=== PATIENT | male | born 1940 | race Caucasian/White ===

== ENCOUNTER → 2023-07-16 04:00 | Outpatient (REF) | payer MEDICARE, SELFPAY | LOC: DHSLP 04:00 | PROVIDERS: ATTENDING PHYSICIAN Internal Medicine Cardiovascular Disease; FAMILY PHYSICIAN Internal Medicine | DX: G47.33 Obstructive sleep apnea (adult) (pediatric) (principal) | CPT/HCPCS: 95800 ==

== ENCOUNTER → 2023-07-22 11:26 | Outpatient (REF) | payer MEDICARE, SELFPAY | LOC: DHCBC/DCA 11:26 | PROVIDERS: ATTENDING PHYSICIAN Internal Medicine Cardiovascular Disease; FAMILY PHYSICIAN Internal Medicine | DX: I48.0 Paroxysmal atrial fibrillation (principal) | CPT/HCPCS: 78452; 93017; A9500; J2785 ==

== ENCOUNTER → 2023-07-26 12:39 | Outpatient (REF) | payer MEDICARE, SELFPAY ==
[2023-07-26 15:58] LABS: % Basophils 0.6 % (0-2); % Eosinophils 2.7 % (0-6); % Lymphocytes 18.8 % (20.5-51.1); % Monocytes 9.6 % (1.7-9.3); % Neutrophils 67.3 % (42.2-75.2); Absolute Basophils 0.1 10^3/uL (0-0.2); Absolute Eosinophils 0.2 10^3/uL (0-0.7); Absolute Immature Granulocytes 0.1 10^3/uL (0-0.05); Absolute Lymphocytes 1.5 10^3/uL (1.2-3.4); Absolute Monocytes 0.7 10^3/uL (0.1-0.6); Absolute Neutrophils 5.2 10^3/uL (1.4-6.5); Hematocrit 47.3 % (39.0-52.0); Hemoglobin 15.7 g/dL (13.0-18.0); Mean Corp Hgb Conc. 33.2 g/dL (33.0-37.0); Mean Corpuscular Hgb 29.3 pg (27.0-31.0); Mean Corpuscular Volume 88.4 fL (80.0-94.0); Mean Platelet Volume 9.5 fL (7.4-10.4); Nucleated Red Blood Cells % 0 % (-); Platelet Count 223 10^3/uL (130-400); Red Blood Cell Count 5.35 10^6/uL (4.70-6.10); Red Cell Dist. Width 13.2 % (11.5-14.5); White Blood Cell Count 7.7 10^3/uL (4.8-10.8)
[2023-07-26 16:32] LABS: ALT (SGPT) 24 U/L (0-50); AST (SGOT) 27 U/L (17-59); Albumin 4.5 g/dl (3.5-5.0); Alkaline Phosphatase 78 U/L (38-126); Blood Urea Nitrogen 34 mg/dl (9-20); Calcium 9.8 mg/dl (8.4-10.2); Carbon Dioxide 27 mmol/L (22-30); Chloride 101 mmol/L (98-107); Glucose 152 mg/dl (70-99); HDL Cholesterol 54 mg/dl; LDL Cholesterol, Calculated 78 mg/dl; Potassium 4.4 mmol/L (3.5-5.1); Sodium 138 mmol/L (135-145); Total Bilirubin 0.7 mg/dl (0.2-1.3); Total Cholesterol 152 mg/dl (50-199); Total Protein 7.3 g/dl (6.3-8.2); Triglyceride 103 mg/dl (10-149); Very Low Density Lipoprotein 20 mg/dl (0-30); eGFR 46.48
[2023-07-26 16:49] LABS: TSH Reflex To Free T4 2.57 uIU/ml (0.47-4.68)
[2023-07-26 16:59] LABS: Microalbumin, Random Urine 31.9 mg/dl (0.6-1.7); Microalbumin/creatinine Ratio 553.8 mg/g
[2023-07-27 08:56] LABS: Glycohemoglobin (HgbA1c) 8.2 % (4.0-5.6)
== END ==
LOC: HWLAB 12:39
PROVIDERS: ATTENDING PHYSICIAN Internal Medicine
DX: E11.9 Type 2 diabetes mellitus without complications (principal); E78.1 Pure hyperglyceridemia; I48.92 Unspecified atrial flutter; E78.5 Hyperlipidemia, unspecified
CPT/HCPCS: 36415; 80053; 80061; 82043; 82570; 83036; 84443; 85025

== ENCOUNTER → 2023-09-16 06:43 | Day surgery (SDC) | payer MEDICARE, SELFPAY ==
--- NOTE | 2023-09-06 09:01 | HPS.HSE ---
Family Physician
-
Family Physician: NO INTERVIEW UNKNOWN
Chief Complaint
-
Paroxysmal atrial fibrillation and atrial flutter.
History of Present Illness
The patient is an 83-year-old male presenting today for paroxysmal atrial fibrillation and atrial flutter. He was first diagnosed with these atrial arrhythmias in 2019. He does report a wide variety of symptoms associated with these
diagnoses, which include fullness in his neck, rare palpitations, fatigue, and shortness of breath. He is on current pharmacological therapy with Diltiazem and newly added Metoprolol Succinate. He is compliant with Eliquis for oral anticoagulation
due to a [id number] of 6. He notes that his current symptoms are greatly interfering with his activities of daily living and are overall impacting his quality of life. He is interested in pursuing pulmonary vein isolation and a possible atrial
flutter ablation for further arrhythmia management. Prior to undergoing these procedures, he will first undergo a transesophageal echocardiogram to officially rule out a left atrial appendage thrombus. He denies any current complaints today such as
chest pain or shortness of breath at rest, nausea, vomiting, diarrhea, lightheadedness, dizziness, cough, sore throat, or fever.
Medical History
Past Medical History
Past Medical History: Reports Other
Additional Past Medical History:
1. Paroxysmal atrial fibrillation and atrial flutter, pharmacological therapy with Diltiazem and Metoprolol Succinate, oral anticoagulation with Eliquis.
2. Hypertension.
3. Dyslipidemia, statin intolerant.
4. Right bundle branch block.
5. Newly diagnosed obstructive sleep apnea, no current device.
6. Right lower extremity DVT and pulmonary embolism, 05/2018, likely provoked by trauma; on Eliquis.
7. Solitary kidney with chronic kidney disease stage 3.
8. Insulin-dependent diabetes.
9. GERD.
10. Colon polyps.
11. Diverticulosis.
12. Remote GI ulcers without bleed.
13. Jaundice of unknown cause 1984.
14. Chronic low back pain.
15. BPH with urinary frequency.
Past Surgical History: Reports Other
Additional Past Surgical History:
1. Right knee meniscus repair.
2. Bilateral inguinal hernia repair in childhood.
3. Radiofrequency ablation.
4. Bilateral eyelid surgery.
5. Bilateral cataract extraction.
6. Tonsillectomy.
7. Colonoscopy x6.
Social History
Tobacco: Non-smoker
Alcohol: Other (He reports, on average, having one alcoholic beverage every Wednesday night. )
Personal:
Living: Other (The patient lives in a two-story townhouse with his .)
Family History
Family History: Not pertinent
Allergies / Home Medications
Allergy/Medication List:
HOME MEDICATIONS:
1. Apixaban 2.5 mg p.o. twice a day.
2. Diltiazem 120 mg p.o. twice a day.
3. Jardiance 25 mg p.o. daily.
4. Zetia 10 mg p.o. at bedtime.
5. Famotidine 20 mg p.o. daily.
6. Fenofibrate 145 mg p.o. daily.
7. Glimepiride 2 mg p.o. twice a day.
8. Lantus 14 units subcutaneous daily.
9. Lisinopril 10 mg p.o. at bedtime.
10. Metformin 500 mg p.o. at bedtime.
11. Metoprolol succinate 25 mg p.o. daily.
12. Centrum Silver multivitamin one tablet p.o. daily.
13. PreserVision one tablet p.o. twice a day.
ALLERGIES: No known allergies.
ADVERSE DRUG REACTIONS: Statins (myalgias).
Review of Systems
-
A 12 point ROS was completed and negative except as noted: Yes
Physical Exam
Vital Signs
VITAL SIGNS: Blood pressure 133/92, heart rate 123, respirations 18, pulse ox 97%.
Height 5 feet 7.5 inches, weight 85.4 kg, BMI 29.1.
Physical Exam
General: Well Developed, Well Nourished and No Apparent Distress
HEENT: NormoCephalic, Moist mucous membranes, Atraumatic and PERRLA
Respiratory: Clear
Cardiac: Irregular Rhythm
GI: Soft, Non Tender and Non Distended
Musculoskeletal: Normal Gait & Station
Skin: Warm and Dry
Neuro: AO x 3 and Nonfocal/grossly intact
Laboratory Results
-
DIAGNOSTIC STUDIES as of 09/03/2023: White blood cell count 7.7, hemoglobin 16.0, platelet count 229, PT 15.3, INR 1.22. Sodium 138, potassium 4.1, BUN 25, creatinine 1.6, glucose 85, calcium 9.6, magnesium 2.0, AST 29, ALT 26, albumin 4.5. Blood
type O-positive.
Electrocardiogram 09/17/2023: Atrial flutter with variable AV block. Left axis deviation. Right bundle branch block. Septal MO. When compared to the EKG of March 22, 2019, atrial flutter has replaced sinus rhythm. Right bundle branch block is now
present.
Echocardiogram 06/16/2023: Ejection fraction is 55-60%. Mild mitral annular calcification with trace mitral regurgitation. Trace tricuspid regurgitation. Estimated pulmonary artery pressure of 20-25 mmHg. The patient was in atrial fibrillation with
heart rates ranging from 72-120 beats per minute.
Exercise stress test 02/09/2019: Left ventricular ejection fraction by SPECT imaging 58%. Patient exercised on a Maximiliano protocol for 7 minutes and 1 second achieving 8 METS and 98% MPHR. Stress EKG negative for ischemia. No arrhythmias noted during
exercise.
Impression/Plan
-
IMPRESSION/PLAN:
1. Paroxysmal atrial fibrillation and atrial flutter: The patient is in need of pulmonary vein isolation and possible atrial flutter ablation. Prior to undergoing these procedures, he will undergo a transesophageal echocardiogram with Dr. Mendoza
Kaylin on 09/16/2023 to officially rule out a left atrial appendage thrombus. The benefits and risks of the procedure have been explained to the patient. The patient understands these risks and wishes to proceed.
[2023-09-16 07:10] VITALS: BMI 28.7
[2023-09-16 07:40] LABS: Glucose - Point of Care 112 mg/dl (70-99)
== END ==
LOC: CATH 06:43
PROVIDERS: ATTENDING PHYSICIAN Internal Medicine Cardiovascular Disease; FAMILY PHYSICIAN Internal Medicine
DX: I08.1 Rheumatic disorders of both mitral and tricuspid valves (principal); I48.0 Paroxysmal atrial fibrillation; I48.92 Unspecified atrial flutter; I45.10 Unspecified right bundle-branch block; I12.9 Hypertensive chronic kidney disease with stage 1 through stage 4 chronic kidney disease, or unspecified chronic kidney disease; E11.22 Type 2 diabetes mellitus with diabetic chronic kidney disease; N18.30 Chronic kidney disease, stage 3 unspecified; E78.5 Hyperlipidemia, unspecified; G47.33 Obstructive sleep apnea (adult) (pediatric); K21.9 Gastro-esophageal reflux disease without esophagitis; Z86.711 Personal history of pulmonary embolism; Z79.01 Long term (current) use of anticoagulants; Z79.4 Long term (current) use of insulin; Z79.84 Long term (current) use of oral hypoglycemic drugs
CPT/HCPCS: 93312; 93320; 93325; 82962

== ENCOUNTER 2023-09-17 08:55 | Day surgery (SDC) | payer MEDICARE, SELFPAY ==
[2023-09-03 08:20] VITALS: BMI 29.1
[2023-09-17] VITALS (14 sets, daily range): BP systolic 90–133; BP diastolic 67–97
[2023-09-17 10:07] LABS: Glucose - Point of Care 83 mg/dl (70-99)
[2023-09-17] MEDS: NSS 500 IV (10:07)
[2023-09-17 13:19] LABS: ACT-LR - POC 281 Seconds (116-155)
[2023-09-17 13:36] LABS: ACT-LR - POC 380 Seconds (116-155)
[2023-09-17 13:59] LABS: ACT-LR - POC 327 Seconds (116-155)
[2023-09-17 14:14] LABS: Glucose 67 mg/dl (70-99)
[2023-09-17 14:27] LABS: ACT-LR - POC 358 Seconds (116-155)
[2023-09-17 14:54] LABS: ACT-LR - POC 395 Seconds (116-155)
[2023-09-17 15:03] LABS: ACT-LR - POC 173 Seconds (116-155)
--- NOTE | 2023-09-17 15:41 | ITS.CL.ABL ---
[facility] - Ablation
Ablation
Procedure Report:
Primary [employer]st[employer] Crew: Kelly Ewing DO
Procedure Date: 09/17/2023
Patient History:
Patient is an 83-year-old male with a past medical history significant for hypertension, DVT/PE, diabetes mellitus type 2, mixed dyslipidemia, chronic renal insufficiency stage III with solitary kidney, persistent atrial fibrillation (and atrial
arrhythmias) who presents for electrophysiology study and ablation of atrial arrhythmia.
See H&P for complete details.
Indication:
Symptomatic persistent atrial fibrillation
Arrhythmia Specific History:
Prior Medical Therapies for Rate and Rhythm Control:
X Beta-cruz
X Calcium channel-cruz
[ ] Amiodarone
[ ] Dronederone
[ ] Sotalol
[ ] Flecainide
[ ] Dofetilide
[ ] Options limited by bradycardia
[ ] Options limited by comorbid renal disease
Prior Procedural Therapies for AF/AFL:
[ ] Cardioversion
[ ] Pulmonary Vein Isolation
[ ] Posterior Wall Isolation
[ ] Additional lines (Specify)
[ ] Surgical Aragon-MAZE or PVI (Specify)
Procedure Performed:
X AF ablation procedure (50746) -- includes LA/CS pacing, trans-septal, 3D mapping, + ICE
[ ] +IV drug (53591)
[ ] +Other Arrhythmia (59468)
[ ] +Other AF Line/ablation (11028)
Risks and expected recovery has been explained in detail. Alternative options have been explored, and in a shared-decision making fashion we have decided that this was the most appropriate procedure.
Method
NPO status confirmed. Grounding pad applied. Defibrillator pads applied. Continuous surface ECG, pulse oximetry, and blood pressure were monitored. Procedure was performed under general anesthesia, with anesthesia services.
Both groins were clipped, prepped with Chloraprep, and draped in sterile fashion. Time out was called. Local anesthesia administered with bupivacaine. The right and left femoral veins were accessed for catheter placement, using ultrasound guidance,
micro-puncture needle/wire, and modified seldinger technique. 3 sheaths were placed. The following catheters were used:
[ ] Tacticath SE (D/F Curve) ablation catheter
X Viewflex 9Fr ICE catheter
X Inquiry decapolar 6Fr diagnostic catheter
[ ] CRD Hex 6Fr
[ ] Arctic Front Advance Cryoballoon ([ ]28mm[ ]23mm)
[ ] Achieve Advance mapping catheter ([ ]15mm[ ]20mm)
X FlexCath Contour 10 Fr with PulseSelect PFA Catheter
X Advisor HD Grid Mapping Catheter, SE
[ ] Acuson AcuNav 8 Fr ICE catheter
[ ]Other: [ ]
Intracardiac ultrasound (ICE) was carefully advanced into the right atrium to guide sheath placement over a J-wire, catheter placement, guide trans-septal puncture, identify potential complications, identify anatomic structures and ensure proper
contact between ablation catheter and tissue. Following placement of the decapolar catheter to coronary sinus, patient was in a regular supraventricular tachycardia (flutter) at 240 ms with activation was noted to be concentric proximal to distal
CS. Entrainment from proximal CS demonstrated a post pacing or minus tachycardia cycle length greater than 50 ms. Heparin was provided and bolus to maintain ACT between 300-400 ms. HD grid was advanced in the right atrium and activation mapping
demonstrated breakthrough via intra-atrial septum (right atrium was passive in the tachycardia).
Heparin was given prior to trans-septal puncture. Heparin was given to achieve and maintain a target ACT of 300-400 seconds throughout the procedure.
Trans-septal access was performed under ICE guidance. The trans-septal puncture was performed with a SafeSept wire through a Brockenbrough needle assembly through the steerable sheath. The wire was visualized as it entered the LSPV and system
advanced under ICE guidance and fluoroscopy into the LA. The Brockenbrough needle assembly, SafeSept wire and sheath dilator were removed under negative pressure. LA pressure was measured and recorded.
ICE and 3D mapping was performed to identify relevant cardiac structures. A careful 3D map was created to assess for regions of low-voltage and abnormal electrogram signals using HD grid mapping catheter and PulseSelect catheter. Once in the left
atrium, HD grid was advanced and tachycardia was mapped demonstrating possible circumflex around the mitral annulus and left-sided pulmonary veins. Initial step was to perform pulmonary vein isolation and reassess.
Prior to ablation, glycopyrrolate was provided. PulseSelect catheter was advanced over J-wire to the ostium of each vein. Pulmonary vein isolation was performed with ostial and antral lesions in a circumferential manner. Contact was visualized via
EAM, ICE, fluoroscopy, and EGM signals. Following completion of ablation lesions, sinus rhythm was restored with a 200J synchronized DCCV and a post-ablation voltage/activation map was performed in sinus rhythm. Entrance and exit block were
confirmed for each vein.
Catheter and sheath were removed from the left atrium and post-ablation intracardiac echo evaluation was consistent with pre-ablation with no changes and no pericardial effusion and there is no left atrial thrombus or left ventricle thrombus seen.
Electrophysiology study was performed and no inducible tachycardia was noted. Hemostasis was obtained with Vascade for each sheath and with manual pressure. Protamine was used for reversal.
Estimated Blood Loss
5-10 mL
Complications
None
Fluoroscopy: 8.8 minutes; 33.04 mGy
Baseline Intervals:
Rhythm: Atrial Flutter
QRS: 133 ms
QT: 335 ms
Post-Procedure Intervals:
MT: 239 ms
QRS: 127 ms
QT: 414 ms
QTc: 447 ms
A-A: 856 ms
R-R: 856 ms
AVWB: 420 ms
AVNERP: 600/290 ms
Recommendations
- Bedrest with straight-leg precautions as ordered
- Anticipate same day discharge if patient meeting clinical metrics
- Resume home medications as indicated
- Ok to resume anticoagulation tonight if patient and groin sites stable
- PPI daily for 30 days
- Plan for follow-up in office as scheduled
Garo Juan DO
Clinical [facility]
cc: Kelly Ewing DO; Bre Godinez MD
--- NOTE | 2023-09-17 17:07 | W.PN.UPDATE ---
Update Note
Progress Note Update
83 yo WM s/p PVI (same day). He feels good, still groggy, no cp, sob, mark clears, groins c/d/i no HT< soft, EKG SR no ectopy. He will take Eliquis at 9pm at home. He will continue diltiazem and will add PPI. Activity restrictions reviewed. He will
f/u Dr. Suresh in 1 mo. He is for d/c home after 6pm if groins stable and voiding.
[2023-09-17 17:15] LABS: Glucose - Point of Care 88 mg/dl (70-99)
== END 2023-09-17 18:04 | disposition home or self-care (01) ==
LOC: CATH 08:55
PROVIDERS: ATTENDING PHYSICIAN Internal Medicine Cardiovascular Disease; FAMILY PHYSICIAN Internal Medicine; OTHER PHYSICIAN Internal Medicine Cardiovascular Disease
DX: I48.0 Paroxysmal atrial fibrillation (principal); I48.92 Unspecified atrial flutter; I12.9 Hypertensive chronic kidney disease with stage 1 through stage 4 chronic kidney disease, or unspecified chronic kidney disease; N18.30 Chronic kidney disease, stage 3 unspecified; E11.22 Type 2 diabetes mellitus with diabetic chronic kidney disease; E78.2 Mixed hyperlipidemia; I45.10 Unspecified right bundle-branch block; G47.33 Obstructive sleep apnea (adult) (pediatric); K21.9 Gastro-esophageal reflux disease without esophagitis; Z79.01 Long term (current) use of anticoagulants; Z79.84 Long term (current) use of oral hypoglycemic drugs; Z79.4 Long term (current) use of insulin
CPT/HCPCS: C1732; C1894; C1769; C1759; 76937; 82947; 82962; 85347; 86900; 86901; 93005; 93656; C1760

== ENCOUNTER → 2023-11-29 07:34 | Outpatient (REF) | payer MEDICARE, SELFPAY ==
[2023-11-29 09:59] LABS: ALT (SGPT) 24 U/L (0-50); AST (SGOT) 34 U/L (17-59); Albumin 4.2 g/dl (3.5-5.0); Alkaline Phosphatase 72 U/L (38-126); Blood Urea Nitrogen 27 mg/dl (9-20); Calcium 9.7 mg/dl (8.4-10.2); Carbon Dioxide 27 mmol/L (22-30); Chloride 104 mmol/L (98-107); Glucose 73 mg/dl (70-99); HDL Cholesterol 56 mg/dl; LDL Cholesterol, Calculated 85 mg/dl; Phosphorus 3.9 mg/dl (2.5-4.5); Potassium 4.1 mmol/L (3.5-5.1); Sodium 140 mmol/L (135-145); Total Bilirubin 0.5 mg/dl (0.2-1.3); Total Cholesterol 158 mg/dl (50-199); Total Protein 6.9 g/dl (6.3-8.2); Triglyceride 89 mg/dl (10-149); Very Low Density Lipoprotein 17 mg/dl (0-30); eGFR 42.75
[2023-11-29 10:36] LABS: Protein/creatinine Ratio 1.4; Urine Protein 108 mg/dl
[2023-11-30 09:02] LABS: Intact PTH 52.3 pg/ml (13.6-85.8)
== END ==
LOC: HWLAB 07:34
PROVIDERS: ATTENDING PHYSICIAN Specialist; FAMILY PHYSICIAN Internal Medicine
DX: E11.21 Type 2 diabetes mellitus with diabetic nephropathy (principal); E78.5 Hyperlipidemia, unspecified; I10 Essential (primary) hypertension; N17.9 Acute kidney failure, unspecified
CPT/HCPCS: 36415; 80053; 80061; 82570; 83036; 83970; 84100; 84156

== ENCOUNTER → 2024-06-26 08:34 | Outpatient (REF) | payer MEDICARE, SELFPAY ==
[2024-06-26 11:44] LABS: Glycohemoglobin (HgbA1c) 7.8 % (4.0-5.6)
[2024-06-26 12:11] LABS: Intact PTH 70.2 pg/ml (13.6-85.8)
[2024-06-26 12:27] LABS: ALT (SGPT) 16 U/L (0-50); AST (SGOT) 22 U/L (17-59); Albumin 4.3 g/dl (3.5-5.0); Alkaline Phosphatase 61 U/L (38-126); Blood Urea Nitrogen 26 mg/dl (9-20); Calcium 9.2 mg/dl (8.4-10.2); Carbon Dioxide 28 mmol/L (22-30); Chloride 102 mmol/L (98-107); Glucose 88 mg/dl (70-99); HDL Cholesterol 50 mg/dl; LDL Cholesterol, Calculated 105 mg/dl; Phosphorus 3.2 mg/dl (2.5-4.5); Potassium 4.3 mmol/L (3.5-5.1); Sodium 138 mmol/L (135-145); Total Bilirubin 0.9 mg/dl (0.2-1.3); Total Cholesterol 180 mg/dl (50-199); Total Protein 6.7 g/dl (6.3-8.2); Triglyceride 126 mg/dl (10-149); Very Low Density Lipoprotein 25 mg/dl (0-30); eGFR 42.75
[2024-06-26 12:32] LABS: Urine Protein 98 mg/dl (0-12)
== END ==
LOC: HWLAB 08:34
PROVIDERS: ATTENDING PHYSICIAN Specialist; FAMILY PHYSICIAN Internal Medicine
DX: I10 Essential (primary) hypertension (principal); N18.32 Chronic kidney disease, stage 3b; E11.21 Type 2 diabetes mellitus with diabetic nephropathy; E11.9 Type 2 diabetes mellitus without complications; E78.1 Pure hyperglyceridemia
CPT/HCPCS: 36415; 80053; 80061; 82570; 83036; 83970; 84100; 84156

== ENCOUNTER 2024-08-31 13:04 | Emergency (ER) | payer MEDICARE, SELFPAY ==
[2024-08-31 13:08] VITALS: BP 150/109
[2024-08-31 13:47] VITALS: BMI 28.2
[2024-08-31 14:00] VITALS: BP 140/107
[2024-08-31 14:01] LABS: % Basophils 0.7 % (0-2); % Eosinophils 3.3 % (0-6); % Immature Granulocytes 0.9 % (0-0.5); % Lymphocytes 20.8 % (20.5-51.1); % Monocytes 9.2 % (1.7-9.3); % Neutrophils 65.1 % (42.2-75.2); Absolute Basophils 0.1 10^3/uL (0-0.2); Absolute Eosinophils 0.3 10^3/uL (0-0.7); Absolute Immature Granulocytes 0.1 10^3/uL (0-0.05); Absolute Lymphocytes 1.6 10^3/uL (1.2-3.4); Absolute Monocytes 0.7 10^3/uL (0.1-0.6); Absolute Neutrophils 4.9 10^3/uL (1.4-6.5); Hematocrit 48.3 % (39.0-52.0); Hemoglobin 16.1 g/dL (13.0-18.0); Mean Corp Hgb Conc. 33.3 g/dL (33.0-37.0); Mean Corpuscular Hgb 29.4 pg (27.0-31.0); Mean Corpuscular Volume 88.3 fL (80.0-94.0); Mean Platelet Volume 9.5 fL (7.4-10.4); Nucleated Red Blood Cells % 0 % (-); Platelet Count 203 10^3/uL (130-400); Red Blood Cell Count 5.47 10^6/uL (4.70-6.10); Red Cell Dist. Width 13.5 % (11.5-14.5); White Blood Cell Count 7.6 10^3/uL (4.8-10.8)
[2024-08-31 14:18] LABS: ALT (SGPT) 21 U/L (0-50); AST (SGOT) 28 U/L (17-59); Albumin 4.7 g/dl (3.5-5.0); Alkaline Phosphatase 65 U/L (38-126); Blood Urea Nitrogen 27 mg/dl (9-20); Calcium 9.8 mg/dl (8.4-10.2); Carbon Dioxide 28 mmol/L (22-30); Chloride 104 mmol/L (98-107); Estimated Creatinine Clearance 36 ml/min; Glucose 134 mg/dl (70-99); Potassium 4.4 mmol/L (3.5-5.1); Sodium 142 mmol/L (135-145); Total Bilirubin 0.8 mg/dl (0.2-1.3); Total Protein 7.4 g/dl (6.3-8.2); eGFR 42.49
[2024-08-31] MEDS: LOPRESSOR 5 MG IV (14:44)
[2024-08-31 14:48] LABS: TSH Reflex To Free T4 3.61 uIU/ml (0.47-4.68)
[2024-08-31 15:44] VITALS: BP 140/106
[2024-08-31] MEDS: CARDIZEM 20 MG IV (15:44)
--- NOTE | 2024-08-31 15:50 | ED.GENMED ---
History of Present Illness
General
Chief Complaint: Cardiac Symptoms
Time Seen by Provider: 08/31/24 14:09
History of Present Illness
History of Present Illness:
84-year-old male with history of atrial fibrillation on Eliquis/metoprolol/diltiazem presenting to the emergency department for elevated heart rate. Patient presents from his primary care doctor, where he was noted to have elevated heart rate.
Patient is asymptomatic, denies any chest pain, difficulty breathing, lightheadedness. Heart rate in the 130s. Notes that he has not had any episodes of atrial fibrillation for the past year after an ablation. Reports compliance with his
medications. He took an extra dose of metoprolol prior to arrival. No apparent change. Denies additional acute medical complaints
Past History
Past History
ED Past Medical History: Hypercholesterolemia, NIDDM and Other (Peptic ulcer disease, congenital one kidney-left, followed by Dr Chen, on low dose Lisinopril)
ED Past Surgical History: Other (Bilateral inguinal herniorrhaphy during childhood)
Social History
Tobacco: Non-smoker
Alcohol: Occasional
Personal:
Phy Exam
Physical Exam
Physical Exam:
General: Well-appearing, no clinical signs of dehydration, nontoxic and in no acute distress
HEENT: protecting airway
Neck: appears supple
CV: Tachycardic, regular rhythm, no evidence of cyanosis
Resp: No accessory muscle use, no increased work of breathing, lungs clear to auscultation bilaterally
Abd: No distention
Extremities: No deformities, no swelling, no erythema, pulses and sensation intact
Neuro: alert, no focal neurologic deficit
: deferred
Rectal: deferred
Psych: Normal affect
Skin: Intact
Course
Orders/Labs/Results
Orders:
Orders
08/31/24 13:04
Electrocardiogram (*1) Urgent
Reason for Study: Palpitations
EKG- Treatment ONCE
08/31/24 13:51
Complete Blood Count/With Diff Urgent
Comprehensive Metabolic Panel Urgent
TSH Reflex To Free T4 Urgent
08/31/24 14:39
Metoprolol [Lopressor] 5 mg IV NOW STA
08/31/24 14:59
EKG [Electrocardiogram (*1)] Urgent
Reason for Study: Tachycardia
EKG- Treatment ONCE
08/31/24 15:39
Diltiazem HCl [Cardizem] 20 mg IV NOW STA
Abnormal Lab Results
08/31/24
13:51
Abs Immat Gran (auto) 0.1 H 10^3/uL
(0-0.05)
Absolute Monos (auto) 0.7 H 10^3/uL
(0.1-0.6)
Immature Gran % 0.9 H %
(0-0.5)
BUN 27 H mg/dl
(9-20)
Creatinine 1.6 H mg/dL
(0.7-1.3)
Glucose 134 H mg/dl
(70-99)
08/31/24 13:51
08/31/24 13:51
Vital Signs
Initial and Last Documented VS:
Initial Vital Signs
Temp Pulse Resp BP Pulse Ox
98.0 F 130 16 150/109 98
08/31/24 13:08 08/31/24 13:08 08/31/24 13:08 08/31/24 13:08 08/31/24 13:08
Last Documented Vital Signs
Temp Pulse Resp BP Pulse Ox
98.0 F 132 13 140/106 97
08/31/24 13:08 08/31/24 15:44 08/31/24 14:45 08/31/24 15:44 08/31/24 14:45
MDM/Problems Addressed
MDM/Problems Addressed:
84-year-old male with history of atrial fibrillation status post ablation presenting for elevated heart rate. Vital signs on arrival are significant for tachycardia.
On exam patient is resting comfortably, no acute distress. Patient is currently asymptomatic. EKG is reading sinus rhythm at a rate of 133. However given patient's history, concern for a flutter. Will screen with laboratory analysis and trial
dose of IV metoprolol.
15:00 -heart rate improved to 90s to 120s, remains asymptomatic. In discussion with cardiology, recommending increasing metoprolol to 50 mg twice daily. Heart rate however has gone back up. Patient is also on diltiazem. Will try dose of IV
diltiazem.
16:00 - Labs unremarkable and patient's heart rate has normalized. On reassessment remains asymptomatic. At this time feel stable for discharge with outpatient cardiology follow-up, has an appointment on the . Will start on metoprolol twice
daily. Return precautions discussed and patient verbalized understanding
*EKG
Interpreted by ED Provider?: Yes
EKG Intrepretation Date: 08/31/24
EKG Intrepretation Time: 15:53
Interpretation: abnormal
Comparison EKG: changes noted (elevated HR)
Heart Rate: 133
Rate: tachycardiac
Rhythm: sinus
[place]: left axis deviation
QRS Pattern: normal QRS
Ischemia: non-specific ST changes
*Critical Care Note
Total Time (30-74mins, 75-104mins- exclusive of procedures): Not Applicable
ED Attending Note
-
Portions of this chart may have been created with voice recognition software.� Occasional wrong word or��sound alike� substitutions may have occurred due to the inherent limitations of voice recognition software.
Discharge Plan
Departure
Prescriptions:
No Action
fenofibrate nanocrystallized [Tricor] 145 MG tablet
145 mg PO DAILY
glimepiride 2 MG tablet
2 mg PO BID
Eliquis 2.5 mg Tablet
2.5 mg PO BID
PreserVision AREDS-2 250-90-40-1 mg Capsule
1 tab PO BID
insulin glargine [Lantus Solostar U-100 Insulin] 100 unit/mL (3 mL) Insulin Pen
14 unit SC DAILY
famotidine [Pepcid] 20 mg Tablet
20 mg PO DAILY
vcncuvbclyot-cbjbmczj-dcjduj Tablet
1 tab PO DAILY
ezetimibe [Zetia] 10 mg Tablet
10 mg PO QPM
Jardiance 25 mg Tablet
25 mg PO DAILY
diltiazem HCl 120 MG capsule,extended release 24hr
120 mg PO BID
metformin 500 mg Tablet
500 mg PO DAILY
lisinopril 10 mg Tablet
10 mg PO QPM
metoprolol succinate 25 mg Tablet Extended Release 24 Hr
25 mg PO DAILY
pantoprazole [Protonix] 40 mg tablet,delayed release (DR/EC)
40 mg PO DAILY Qty: 30 0RF
Referrals:
Bre Godinez MD [Family Provider] -
Interventions
Interventions:
*Risk Screen - Suicide Last Done: 08/31/24 13:08
*General Assessment Last Done: 08/31/24 13:47
*Neglect/Abuse Screening Last Done: 08/31/24 13:08
*ED- Fall Risk Assessment Last Done: 08/31/24 13:47
*ED COVID-19 Vaccine History Last Done: 08/31/24 13:47
ED- Pulmonary Assessment Last Done: 08/31/24 13:47
ED- Cardiac Assessment Last Done: 08/31/24 13:47
Discharge Date and Time
Print Language: ARMENIAN
[2024-08-31 16:00] VITALS: BP 118/83
== END 2024-08-31 16:33 | disposition home or self-care (01) ==
LOC: EMR 13:04
PROVIDERS: EMERGENCY PHYSICIAN Student in an Organized Health Care Education/Training Program; FAMILY PHYSICIAN Internal Medicine
DX: I48.91 Unspecified atrial fibrillation (principal); I48.92 Unspecified atrial flutter; E11.9 Type 2 diabetes mellitus without complications; E78.00 Pure hypercholesterolemia, unspecified; Z79.01 Long term (current) use of anticoagulants; Z79.899 Other long term (current) drug therapy
CPT/HCPCS: 99284; 96374; 96375; 80053; 84443; 85025; 93005

== ENCOUNTER 2024-09-11 07:16 | Day surgery (SDC) | payer MEDICARE, SELFPAY | END 2024-09-11 09:44 | disposition home or self-care (01) | LOC: CATH 07:16 | PROVIDERS: ATTENDING PHYSICIAN Student in an Organized Health Care Education/Training Program; FAMILY PHYSICIAN Internal Medicine; OTHER PHYSICIAN Internal Medicine Cardiovascular Disease | DX: I48.0 Paroxysmal atrial fibrillation (principal); I12.9 Hypertensive chronic kidney disease with stage 1 through stage 4 chronic kidney disease, or unspecified chronic kidney disease; E11.22 Type 2 diabetes mellitus with diabetic chronic kidney disease; N18.30 Chronic kidney disease, stage 3 unspecified; Z79.4 Long term (current) use of insulin; E78.5 Hyperlipidemia, unspecified; I45.10 Unspecified right bundle-branch block; G47.33 Obstructive sleep apnea (adult) (pediatric); K21.9 Gastro-esophageal reflux disease without esophagitis; Z79.01 Long term (current) use of anticoagulants; Z79.84 Long term (current) use of oral hypoglycemic drugs | CPT/HCPCS: 92960; 93005 ==

== ENCOUNTER → 2024-09-13 10:46 | Outpatient (REF) | payer MEDICARE, SELFPAY ==
[2024-09-13 11:53] LABS: % Basophils 0.3 % (0-2); % Immature Granulocytes 0.5 % (0-0.5); % Lymphocytes 10.4 % (20.5-51.1); % Monocytes 12.8 % (1.7-9.3); Absolute Lymphocytes 0.8 10^3/uL (1.2-3.4); Absolute Neutrophils 5.7 10^3/uL (1.4-6.5); Hematocrit 47.2 % (39.0-52.0); Hemoglobin 15.9 g/dL (13.0-18.0); Mean Corp Hgb Conc. 33.7 g/dL (33.0-37.0); Mean Corpuscular Hgb 28.8 pg (27.0-31.0); Mean Corpuscular Volume 85.5 fL (80.0-94.0); Mean Platelet Volume 9.9 fL (7.4-10.4); Nucleated Red Blood Cells % 0 % (-); Platelet Count 153 10^3/uL (130-400); Red Blood Cell Count 5.52 10^6/uL (4.70-6.10); Red Cell Dist. Width 13.4 % (11.5-14.5); White Blood Cell Count 7.5 10^3/uL (4.8-10.8)
[2024-09-13 12:27] LABS: Blood Urea Nitrogen 34 mg/dl (9-20); Carbon Dioxide 26 mmol/L (22-30); Chloride 99 mmol/L (98-107); Glucose 115 mg/dl (70-99); Potassium 4.3 mmol/L (3.5-5.1); Sodium 136 mmol/L (135-145); eGFR 39.51
== END ==
LOC: HWRAD 10:46
PROVIDERS: ATTENDING PHYSICIAN Nurse Practitioner Family
DX: R05.9 Cough, unspecified (principal); I48.91 Unspecified atrial fibrillation
CPT/HCPCS: 36415; 71046; 80048; 85025

== ENCOUNTER → 2024-11-02 09:35 | Outpatient (REF) | payer MEDICARE, SELFPAY ==
[2024-11-02 12:39] LABS: ALT (SGPT) 17 U/L (0-50); AST (SGOT) 24 U/L (17-59); Albumin 4.2 g/dl (3.5-5.0); Alkaline Phosphatase 65 U/L (38-126); Blood Urea Nitrogen 25 mg/dl (9-20); Calcium 9.9 mg/dl (8.4-10.2); Carbon Dioxide 27 mmol/L (22-30); Chloride 106 mmol/L (98-107); Glucose 113 mg/dl (70-99); HDL Cholesterol 49 mg/dl; LDL Cholesterol, Calculated 81 mg/dl; Potassium 4.2 mmol/L (3.5-5.1); Sodium 139 mmol/L (135-145); Total Bilirubin 0.6 mg/dl (0.2-1.3); Total Cholesterol 166 mg/dl (50-199); Triglyceride 181 mg/dl (10-149); Very Low Density Lipoprotein 36 mg/dl (0-30); eGFR 45.91
[2024-11-02 14:01] LABS: Glycohemoglobin (HgbA1c) 6.9 % (4.0-5.6)
[2024-11-03 14:24] LABS: Microalbumin, Random Urine 53.6 mg/dl (0.6-1.7); Microalbumin/creatinine Ratio 710.9 mg/g
== END ==
LOC: HWLAB 09:35
PROVIDERS: ATTENDING PHYSICIAN Internal Medicine
DX: E11.9 Type 2 diabetes mellitus without complications (principal); E78.1 Pure hyperglyceridemia; J18.9 Pneumonia, unspecified organism
CPT/HCPCS: 36415; 71046; 80053; 80061; 82043; 82570; 83036

== ENCOUNTER → 2025-01-15 08:20 | Outpatient (REF) | payer MEDICARE, SELFPAY ==
[2025-01-15 09:35] LABS: Hematocrit 45.2 % (39.0-52.0); Hemoglobin 14.9 g/dL (13.0-18.0); Mean Corp Hgb Conc. 33.0 g/dL (33.0-37.0); Mean Corpuscular Volume 88.6 fL (80.0-94.0); Nucleated Red Blood Cells % 0 % (-); Platelet Count 193 10^3/uL (130-400); Red Cell Dist. Width 13.9 % (11.5-14.5)
[2025-01-15 09:44] LABS: INR 1.12; PT 14.7 Sec (11.4-14.6)
[2025-01-15 10:15] LABS: ALT (SGPT) 19 U/L (0-50); AST (SGOT) 27 U/L (17-59); Albumin 4.2 g/dl (3.5-5.0); Alkaline Phosphatase 54 U/L (38-126); Blood Urea Nitrogen 27 mg/dl (9-20); Calcium 9.5 mg/dl (8.4-10.2); Carbon Dioxide 28 mmol/L (22-30); Chloride 106 mmol/L (98-107); Glucose 122 mg/dl (70-99); Magnesium 2.0 mg/dl (1.6-2.3); Potassium 4.3 mmol/L (3.5-5.1); Sodium 140 mmol/L (135-145); Total Protein 6.9 g/dl (6.3-8.2); eGFR 45.91
== END ==
LOC: SDSPAT 08:20
PROVIDERS: ATTENDING PHYSICIAN Internal Medicine Cardiovascular Disease; FAMILY PHYSICIAN Internal Medicine; REFERRING PHYSICIAN Internal Medicine Cardiovascular Disease
DX: I48.0 Paroxysmal atrial fibrillation (principal)
CPT/HCPCS: 36415; 80053; 83735; 85025; 85610; 86850; 86900; 86901; 93005

== ENCOUNTER 2025-01-26 06:50 | Day surgery (SDC) | payer MEDICARE, SELFPAY ==
--- NOTE | 2025-01-15 09:40 | HPS.HSE ---
Family Physician
-
Family Physician: NO INTERVIEW UNKNOWN
Chief Complaint
-
Paroxysmal atrial fibrillation and atrial flutter.
History of Present Illness
The patient is an 84-year-old male presenting today for paroxysmal atrial fibrillation and atrial flutter. He was first diagnosed with these atrial arrhythmias in 2018. He does report a wide variety of symptoms associated with these
diagnoses, which include fullness in his neck, rare palpitations, fatigue, and shortness of breath. A 7 day CAM monitor in June 2023 revealed a 60% atrial fibrillation burden and a 4% atrial flutter burden. He underwent pulmonary vein isolation
in August 2023 followed by a cardioversion in August 2024 after his atrial arrhythmia had recurred. He is on current pharmacological therapy with Diltiazem and Metoprolol Succinate. He is compliant with Eliquis for oral anticoagulation due to a
[id number] of 6. He is interested in pursuing pulmonary vein isolation again for more definitive arrhythmia management. He denies any current complaints today such as chest pain and shortness of breath at rest, nausea, vomiting, diarrhea,
lightheadedness, dizziness, cough, sore throat, or fever.
Medical History
Past Medical History
Past Medical History: Reports Other
Additional Past Medical History:
1. Paroxysmal atrial fibrillation and atrial flutter, status post pulmonary vein isolation, 08/2023, and cardioversion 08/2024; pharmacological therapy with Diltiazem and Metoprolol Succinate, oral anticoagulation with Eliquis.
2. Hypertension.
3. Dyslipidemia, statin intolerant.
4. Right bundle branch block.
5. Mild mitral regurgitation.
6. Obstructive sleep apnea.
7. Right lower extremity DVT and pulmonary embolism, 05/2018, likely provoked by trauma; on Eliquis.
8. Solitary kidney with chronic kidney disease stage 3B.
9. Insulin-dependent diabetes, hemoglobin A1c 6.9 10/2024.
10. GERD.
11. Colon polyps.
12. Diverticulosis.
13. Peptic ulcer disease.
14. Jaundice of unknown cause 1984.
15. Lumbar degenerative disc disease.
16. BPH with urinary frequency.
17. Hearing impairment.
Past Surgical History: Reports Other
Additional Past Surgical History:
1. HARI-guided pulmonary vein isolation.
2. Cardioversion.
3. Right knee meniscus repair.
4. Bilateral inguinal hernia repair in childhood.
5. Radiofrequency ablation.
6. Bilateral eyelid surgery.
7. Bilateral cataract extraction.
8. Tonsillectomy.
9. Colonoscopy x6.
Social History
Tobacco: Non-smoker
Alcohol: Other (He reports, on average, having one alcoholic beverage every Wednesday night.)
Personal:
Living: Other (The patient lives in a two-story townhouse with his .)
Family History
Family History: Not pertinent
Allergies / Home Medications
Allergy/Medication List:
HOME MEDICATIONS:
1. Apixaban 2.5 mg p.o. twice a day.
2. Diltiazem 120 mg p.o. every evening.
3. Jardiance 25 mg p.o. daily.
4. Zetia 10 mg p.o. every evening.
5. Famotidine 10 mg p.o. daily.
6. Fenofibrate 145 mg p.o. daily.
7. Glimepiride 2 mg p.o. twice a day.
8. Lantus 14 units subcutaneous daily.
9. Lisinopril 10 mg p.o. every evening.
10. Metformin 500 mg p.o. daily.
11. Metoprolol Succinate 50 mg p.o. twice a day.
12. PreserVision one tablet p.o. twice a day.
ALLERGIES: Farxiga.
ADVERSE DRUG REACTIONS: Statins (myalgias).
Review of Systems
-
A 12 point ROS was completed and negative except as noted: Yes
Physical Exam
Vital Signs
Blood pressure 145/79. Heart rate 54. Respirations 18. Pulse ox 98% on room air.
Height 5 feet, 8 inches. Weight 88.9 kg. BMI 29.8.
Physical Exam
General: Well Developed, Well Nourished and No Apparent Distress
HEENT: NormoCephalic, Moist mucous membranes, Atraumatic and PERRLA
Respiratory: Clear
Cardiac: Regular Rhythm
GI: Soft, Non Tender and Non Distended
Musculoskeletal: No Edema and Normal Gait & Station
Skin: Warm and Dry
Neuro: AO x 3 and Nonfocal/grossly intact
Laboratory Results
-
DIAGNOSTIC STUDIES as of 01/15/2025: White blood cell count 8.2. Hemoglobin 14.9. Platelet count 193,000. PT 14.7. INR 1.12. Sodium 140. Potassium 4.3. BUN 27. Creatinine 1.5. Glucose 122. Calcium 9.5. Magnesium 2.0. AST 27. ALT 19. Albumin 4.2.
Type and screen O positive.
EKG 01/15/2025: Sinus rhythm with first degree AV block. Left axis deviation. Non-specific intra-ventricular conduction delay. Minimal voltage criteria for LVH, may be normal variant.
Transesophageal echocardiogram 09/16/2023: Normal left-ventricular chamber size, myocardial thickness, and systolic function. Left ventricular ejection fraction 55 to 60%. No left atrial appendage thrombus. No spontaneous echo contrast. Mild mitral
regurgitation.
Impression/Plan
-
IMPRESSION/PLAN:
1. Paroxysmal atrial fibrillation and atrial flutter: The patient is in need of pulmonary vein isolation with Dr. Garo Juan on 01/26/2025. Given his solitary kidney with associated chronic kidney disease, he will undergo a transesophageal
echocardiogram on the same day to definitively rule out a left atrial appendage thrombus. The benefits and risks of both procedures have been explained to the patient. The patient understands these risks and wishes to proceed. He is aware to hold
his Jardiance 72 hours prior. He will continue compliance with his Eliquis for oral anticoagulation. He will take no medications the morning of his surgery.
[2025-01-15 12:32] VITALS: BMI 29.8
[2025-01-26] VITALS (17 sets, daily range): BP systolic 111–176; BP diastolic 62–84; BMI 27.7
[2025-01-26 07:53] LABS: Glucose - Point of Care 72 mg/dl (70-99)
[2025-01-26] MEDS: TYLENOL 1000 MG PO (10:17)
[2025-01-26 10:18] LABS: Glucose - Point of Care 65 mg/dl (70-99)
[2025-01-26] MEDS: DEXTROSE 50% SYRINGE 12.5 GRAMS IV (10:18)
[2025-01-26] MEDS: NSS 500 IV (10:27)
[2025-01-26 10:43] LABS: Glucose - Point of Care 129 mg/dl (70-99)
[2025-01-26 12:19] LABS: ACT-LR - POC 324 Seconds (116-155)
[2025-01-26 12:38] LABS: ACT-LR - POC 393 Seconds (116-155)
[2025-01-26 12:52] LABS: ACT-LR - POC 353 Seconds (116-155)
[2025-01-26 12:52] LABS: Glucose - Point of Care 83 mg/dl (70-99)
[2025-01-26 13:00] LABS: Glucose - Point of Care 99 mg/dl (70-99)
[2025-01-26 13:07] LABS: ACT-LR - POC 377 Seconds (116-155)
[2025-01-26 13:34] LABS: ACT-LR - POC 400 Seconds (116-155)
[2025-01-26 13:40] LABS: Glucose - Point of Care 92 mg/dl (70-99)
[2025-01-26 14:01] LABS: ACT-LR - POC 324 Seconds (116-155)
[2025-01-26 14:08] LABS: Glucose - Point of Care 92 mg/dl (70-99)
[2025-01-26 14:09] LABS: ACT-LR - POC 152 Seconds (116-155)
--- NOTE | 2025-01-26 16:14 | ITS.CL.ABL ---
[facility] - Ablation
Ablation
Procedure Report:
Primary Big Data Platform Architect: Dr Kelly Ewing
Procedure Date: 01/26/2025
Patient History:
Patient is a pleasant 84-year-old male with a past medical history significant for diabetes mellitus type 2, DVT, CKD 3B with solitary kidney, hypertension, paroxysmal atrial fibrillation, paroxysmal atrial flutter.
See H&P for complete details.
Indication:
Symptomatic paroxysmal atrial fibrillation
Symptomatic paroxysmal atrial flutter
Arrhythmia Specific History:
Prior Medical Therapies for Rate and Rhythm Control:
X Beta-cruz
X Calcium channel-cruz
[ ] Amiodarone
[ ] Dronederone
[ ] Sotalol
[ ] Flecainide
[ ] Dofetilide
[ ] Options limited by bradycardia
[ ] Options limited by comorbid renal disease
Prior Procedural Therapies for AF/AFL:
[ ] Cardioversion
X Pulmonary Vein Isolation- PFA 09/17/2023
[ ] Posterior Wall Isolation
[ ] Additional lines (Specify)
[ ] Surgical Aragon-MAZE or PVI (Specify)
Procedure Performed:
X AF ablation procedure (41876) -- includes LA/CS pacing, trans-septal, 3D mapping, + ICE
[ ] +IV drug (96144)
X +Other Arrhythmia (33807) - atypical left atrial flutter (anterior mitral line)
X +Other AF Line/ablation (31927) - floor line, roof line, posterior wall isolation
Risks and expected recovery has been explained in detail. Alternative options have been explored, and in a shared-decision making fashion we have decided that this was the most appropriate procedure.
Method
NPO status confirmed. Grounding pad applied. Defibrillator pads applied. Continuous surface ECG, pulse oximetry, and blood pressure were monitored. Procedure was performed under general anesthesia, with anesthesia services.
Both groins were clipped, prepped with Chloraprep, and draped in sterile fashion. Time out was called. Local anesthesia administered with bupivacaine. The right femoral vein was accessed for catheter placement, using ultrasound guidance (images
saved to record), micro-puncture needle/wire, and modified seldinger technique. 3 sheaths were placed. The following catheters were used:
[ ] Tacticath SE (D/F Curve) ablation catheter
X Viewflex 9Fr ICE catheter
X Inquiry decapolar 6Fr diagnostic catheter
[ ] CRD Hex 6Fr
X Agilis 11.5 Fr Steerable Sheath
X Sphere-9 Ablation catheter
[ ] Advisor HD Grid Mapping Catheter, SE
[ ] Acuson AcuNav 8 Fr ICE catheter
[ ] Other: [ ]
A multipolar catheter were advanced to the coronary sinus. Intracardiac ultrasound (ICE) was carefully advanced into the right atrium to guide sheath placement over a J-wire, catheter placement, guide trans-septal puncture, identify potential
complications, identify anatomic structures and ensure proper contact between ablation catheter and tissue.
Heparin was given to achieve and maintain a target ACT of 300-400 seconds throughout the procedure.
Trans-septal access was performed under ICE guidance. The trans-septal puncture was performed with a SafeSept wire through a Brockenbrough needle assembly through the steerable sheath. The wire was visualized as it entered the LSPV and system
advanced under ICE guidance and fluoroscopy into the LA. The Brockenbrough needle assembly, SafeSept wire and sheath dilator were removed under negative pressure. LA pressure was measured and recorded.
ICE and 3D mapping was performed to identify relevant cardiac structures. A careful 3D map was created to assess for regions of low-voltage and abnormal electrogram signals using Sphere-9 catheter. Additional mapping was performed as outlined below.
Prior to ablation, glycopyrrolate was provided. Sphere 9 catheter was advanced into the left atrium. Electroanatomic mapping was performed using the Sphere 9 catheter. Each pulmonary vein had demonstrated exit block however complex fractionated
signal was noted at the ostia of each vein along the floor roof and posterior wall. Pulmonary vein isolation was performed using pulsed field ablation in a circumferential manner ensuring elimination of complex fractionated signal and appropriate
entrance and exit block. Contact was visualized via EAM, ICE, fluoroscopy, and EGM signals.
After accomplishing pulmonary venous isolation, mapping identified additional areas likely to be extra PV contributors to atrial fibrillation. These areas demonstrated patchy low voltage as well as complex fractionated electrograms. These areas can
be sites for the formation of rotors which can drive and maintain atrial fibrillation. These areas are known to be significant contributors to initiation and perpetuation of atrial fibrillation.
Additional energy applications/additional ablation sets targeted extra PV contributors to atrial fibrillation.
Targets for additional PFA ablation included: LA posterior wall targeted with pulsed electric field energy isolating the posterior wall of the left atrium. Posterior wall isolation was performed by aforementioned methods using Sphere-9 catheter.
After ablation of the posterior wall, targets remained including:
- Inferior LA floor
- Anterior LA roof
- The ridge of tissue between the left atrial appendage and the left sided pulmonary veins (Ligament of Roger)
These areas were ablated using pulsed electric field energy eliminating the extra PV contributors to atrial fibrillation.
Following completion of ablation lesions, a post-ablation voltage/activation map was performed in sinus rhythm. Entrance and exit block were confirmed for each vein and the posterior wall.
Electrophysiology study was then performed and atrial flutter was induced. Patient's atrial flutter was characterized as an eccentrically activated by coronary sinus catheter tachycardia with a cycle length of 280 ms. Electroanatomic mapping
within the left atrium demonstrated circuit at the's anterior portion of the left atrium. This was a micro reentrant circuit at the anterior/anteroseptal location. Complex fractionated signal was noted at this location. Entrainment was performed
at the location of the circuit which was concealed with a PPI minus TCL less than 30. Pulse field ablation was performed at this location with termination of the tachycardia. An anterior mitral line was then performed from the roofline/left
superior pulmonary vein to the mitral annulus. Careful attention was made to avoid left atrial appendage. Following completion of this mitral line, electrophysiology study was again performed with attempted induction of arrhythmia. No inducible
arrhythmias were noted.
Catheter and sheath were removed from the left atrium and post-ablation intracardiac echo evaluation was consistent with pre-ablation with no changes and no pericardial effusion and there is no left atrial thrombus or left ventricle thrombus seen.
Electrophysiology study was performed. Hemostasis was obtained with figure of 8 stitch for each groin and with manual pressure. Protamine was used for reversal.
Estimated Blood Loss
5 mL
Complications
None
Fluoroscopy: 15.3 minutes; 199.23 mGy; DAP 23.1
LA Pressure: Pre 13 mmHg, post 24 mmHg
Baseline Intervals:
Rhythm: Sinus rhythm
WI: 248 ms
QRS: 127 ms
QT: 432 ms
QTc: 382 ms
A-A: 1280 ms
R-R: 1280 ms
Post-Procedure Intervals:
WI: 211 ms
QRS: 131 ms
QT: 459 ms
QTc: 468 ms
A-A: 960 ms
R-R: 960 ms
AVWB: 330 ms
AERP: 600/230 ms
Recommendations
- Bedrest with straight-leg precautions as ordered
- Anticipate same day discharge if patient meeting clinical metrics
- Resume home medications as indicated
- Ok to resume anticoagulation tonight if patient and groin sites stable
- Plan for follow-up in office as scheduled
Garo Juan DO, FACC, RS
Clinical Cardiac Drier Tender
cc: Dr Kelly Ewing, Dr Bre Godinez
[2025-01-26] MEDS: ZETIA 10 MG PO (18:21)
[2025-01-26] MEDS: CARDIZEM CD 120 MG PO (18:21)
[2025-01-26] MEDS: ZESTRIL 10 MG PO (18:21)
== END 2025-01-26 18:54 | disposition home or self-care (01) ==
LOC: CATH 06:50
PROVIDERS: ATTENDING PHYSICIAN Internal Medicine Cardiovascular Disease; FAMILY PHYSICIAN Internal Medicine; OTHER PHYSICIAN Internal Medicine Cardiovascular Disease
DX: I48.0 Paroxysmal atrial fibrillation (principal); Z79.01 Long term (current) use of anticoagulants; E11.22 Type 2 diabetes mellitus with diabetic chronic kidney disease; E78.5 Hyperlipidemia, unspecified; G47.33 Obstructive sleep apnea (adult) (pediatric); H91.90 Unspecified hearing loss, unspecified ear; I08.0 Rheumatic disorders of both mitral and aortic valves; I44.0 Atrioventricular block, first degree; I45.4 Nonspecific intraventricular block; I45.10 Unspecified right bundle-branch block; Z86.718 Personal history of other venous thrombosis and embolism; Z86.711 Personal history of pulmonary embolism; Z86.0100 Personal history of colon polyps, unspecified; K21.9 Gastro-esophageal reflux disease without esophagitis; Z87.11 Personal history of peptic ulcer disease; K57.90 Diverticulosis of intestine, part unspecified, without perforation or abscess without bleeding; M51.369 Other intervertebral disc degeneration, lumbar region without mention of lumbar back pain or lower extremity pain; N40.1 Benign prostatic hyperplasia with lower urinary tract symptoms; Z79.84 Long term (current) use of oral hypoglycemic drugs; Z79.899 Other long term (current) drug therapy; Z88.8 Allergy status to other drugs, medicaments and biological substances; Z79.4 Long term (current) use of insulin; I70.0 Atherosclerosis of aorta; Z98.890 Other specified postprocedural states
CPT/HCPCS: 93312; 93320; 93325; C1733; C1894; C1769; C1766; C1730; 82962; 85347; 93005; 93655; 93656; 93657

== ENCOUNTER → 2025-02-05 10:29 | Outpatient (REF) | payer MEDICARE, SELFPAY ==
[2025-02-05 12:34] LABS: Blood Urea Nitrogen 29 mg/dl (9-20); Calcium 9.2 mg/dl (8.4-10.2); Carbon Dioxide 27 mmol/L (22-30); Chloride 106 mmol/L (98-107); Glucose 106 mg/dl (70-99); Potassium 4.6 mmol/L (3.5-5.1); Sodium 139 mmol/L (135-145); eGFR 45.91
== END ==
LOC: REG 10:29
PROVIDERS: ATTENDING PHYSICIAN Internal Medicine Cardiovascular Disease; FAMILY PHYSICIAN Internal Medicine; OTHER PHYSICIAN Internal Medicine Cardiovascular Disease
DX: N18.32 Chronic kidney disease, stage 3b (principal)
CPT/HCPCS: 36415; 80048

== ENCOUNTER → 2025-03-26 12:03 | Outpatient (REF) | payer MEDICARE, SELFPAY ==
[2025-03-26 15:06] LABS: ALT (SGPT) 18 U/L (0-50); AST (SGOT) 23 U/L (17-59); HDL Cholesterol 53 mg/dl; LDL Cholesterol, Calculated 116 mg/dl; Very Low Density Lipoprotein 20 mg/dl (0-30)
[2025-03-27 09:09] LABS: Glycohemoglobin (HgbA1c) 7.2 % (4.0-5.9)
== END ==
LOC: HWLAB 12:03
PROVIDERS: ATTENDING PHYSICIAN Internal Medicine
DX: E78.1 Pure hyperglyceridemia (principal); E11.9 Type 2 diabetes mellitus without complications
CPT/HCPCS: 36415; 80061; 83036; 84450; 84460